=== PATIENT | male | born 1945 | race Caucasian/White ===

== ENCOUNTER 2016-07-28 10:50 | Inpatient (IN) | payer MEDICARE, OTHER ==
[2016-07-28 11:36] LABS: HEMATOCRIT 24.7 % (37.9-51.0); HEMOGLOBIN 8.2 g/dL (13.5-17.0); HGB HCT DIFFERENCE -0.1; MEAN CORPUSCULAR HGB CONC 33.1 g/dL (32.0-36.0); MEAN CORPUSCULAR VOLUME 103 fl (80-97); RED BLOOD COUNT 2.41 10^6/uL (4.35-5.55); RED CELL DISTRIBUTION WIDTH 24.4 % (11.5-14.0); WHITE BLOOD COUNT 6.8 10^3/uL (4.0-10.5)
[2016-07-28 11:57] LABS: ALANINE AMINOTRANSFERASE 50 U/L (21-72); ALBUMIN 3.6 g/dL (3.5-5.0); ALKALINE PHOSPHATASE 112 U/L (38-126); ASPARTATE AMINO TRANSFERASE 42 U/L (17-59); BLOOD UREA NITROGEN 29 mg/dL (7-20); CALCIUM 8.8 mg/dL (8.4-10.2); CHLORIDE 81 mmol/L (98-107); CREATININE RESULT 0.87 mg/dL (0.52-1.25); GLUCOSE 93 mg/dL (75-110); POTASSIUM 3.3 mmol/L (3.6-5.0); SODIUM 131.1 mmol/L (137-145); TOTAL PROTEIN 6.9 g/dL (6.3-8.2)
[2016-07-28 11:58] LABS: ALCOHOL < 10 mg/dL (NONE DETECTED)
[2016-07-28 12:07] LABS: BASOPHILS % (MANUAL) 0 % (0-2); EOSINOPHILS % (MANUAL) 14 % (0-6); LYMPHOCYTES % (MANUAL) 13 % (13-45); TOTAL CELLS COUNTED 100
[2016-07-28 12:08] LABS: ANISOCYTOSIS 3+; OVALOCYTES 1+; POIKILOCYTOSIS 1+; POLYCHROMASIA SLIGHT
[2016-07-28] MEDS ORDERED: NORMAL SALINE 1000 ML 1,000 ML IV ONE (12:15)
[2016-07-28 12:18] LABS: ANION GAP 7 (5-19)
[2016-07-28 12:19] LABS: APPEARANCE,URINE CLEAR; BILIRUBIN,URINE NEGATIVE (NEGATIVE); GLUCOSE, URINE NEGATIVE (NEGATIVE); KETONES,URINE NEGATIVE (NEGATIVE); LEUKOCYTE ESTERASE,URINE TRACE (NEGATIVE); NITRITE,URINE NEGATIVE (NEGATIVE); PROTEIN,URINE NEGATIVE (NEGATIVE); URINE SPECIFIC GRAVITY 1.012
[2016-07-28 12:23] LABS: CARBON DIOXIDE 43 mmol/L (22-30)
[2016-07-28 12:34] LABS: URINE BARBITURATES SCREEN NEGATIVE; URINE METHADONE SCREEN NEGATIVE; URINE PHENCYCLIDINE SCREEN NEGATIVE
--- NOTE | 2016-07-28 13:08 | ER Document Report ---
ED General - General Chief Complaint: Seizure Stated Complaint: POSSIBLE SEIZURE Mode of Arrival: Ambulatory Information source: Patient Notes: 70-year-old male extensive medical history presents after a seizure-like episode when laying flat. Patient was given an x-ray performed of his back as her primary care office when he laid flat and had a syncopal episode. Patient had generalized movement during this episode, and appeared confused afterwards Patient has no previous history seizure disorders patient has had multiple syncopal episodes in the past TRAVEL OUTSIDE OF THE [place] IN LAST 30 DAYS: No - HPI Onset: Just prior to arrival Onset/Duration: Sudden Quality of pain: No pain Severity: Mild Pain Level: Denies Associated symptoms: Other Exacerbated by: Denies Relieved by: Denies Similar symptoms previously: No Recently seen / treated by doctor: Yes - Related Data Allergies/Adverse Reactions: levofloxacin [From Levaquin] Allergy (Verified 12/26/15 19:27) Past Medical History - Social History Smoking Status: Former Smoker Cigarette use (# per day): No Chew tobacco use (# tins/day): No Smoking Education Provided: No Family History: Reviewed & Not Pertinent - Past Medical History Cardiac Medical History: Reports: Hx Atrial Fibrillation, Hx Congestive Heart Failure, Hx Coronary Artery Disease, Hx Hypertension Denies: Hx Heart Attack Pulmonary Medical History: Reports: Hx COPD Denies: Hx Asthma, Hx Bronchitis, Hx Pneumonia Neurological Medical History: Denies: Hx Cerebrovascular Accident, Hx Seizures GI Medical History: Reports: Hx Gastroesophageal Reflux Disease Musculoskeltal Medical History: Denies Hx Arthritis Psychiatric Medical History: Denies: Hx Depression Past Surgical History: Reports: Hx Appendectomy, Hx Cardiac Surgery - pacemaker , Hx Orthopedic Surgery - Elbow surgery, arthroscopy to both knees and shoulders - Immunizations Hx Diphtheria, Pertussis, Tetanus Vaccination: Yes Hx Pneumococcal Vaccination: 07/25/12 Review of Systems - Review of Systems Notes: REVIEW OF SYSTEMS: CONSTITUTIONAL : Denies fever, chills, or sweats. Denies recent illness. EENT: Denies eye, ear, throat, or mouth pain or symptoms. Denies nasal or sinus congestion or discharge. Denies throat, tongue, or mouth swelling or difficulty swallowing. CARDIOVASCULAR: Denies chest pain. Denies palpitations or racing or irregular heart beat. Denies ankle edema. RESPIRATORY: Denies cough, cold, or chest congestion. Denies shortness of breath, difficulty breathing, or wheezing. GASTROINTESTINAL: Denies abdominal pain or distention. Denies nausea, vomiting , or diarrhea. Denies blood in vomitus, stools, or per rectum. Denies black, tarry stools. Denies constipation. GENITOURINARY: Denies difficulty urinating, painful urination, burning, frequency, blood in urine, or discharge. MUSCULOSKELETAL: Denies back or neck pain or stiffness. Denies joint pain or swelling. SKIN: Denies rash, lesions or sores. HEMATOLOGIC : Denies easy bruising or bleeding. LYMPHATIC: Denies swollen, enlarged glands. NEUROLOGICAL: admits to syncope PSYCHIATRIC: Denies anxiety or stress. Denies depression, suicidal ideation, or homicidal ideation. ALL OTHER SYSTEMS REVIEWED AND NEGATIVE. Dictation was performed using [email or web address] voice recognition software PHYSICAL EXAMINATION: GENERAL: Well-appearing, well-nourished and in no acute distress. HEAD: Atraumatic, normocephalic. EYES: Pupils equal round and reactive to light, extraocular movements intact, sclera anicteric, conjunctiva are normal. ENT: Nares patent, oropharynx clear without exudates. Moist mucous membranes. NECK: Normal range of motion, supple without lymphadenopathy LUNGS: coarse wheezing all throughout HEART: Regular rate and rhythm without murmurs ABDOMEN: Soft, nontender, nondistended abdomen. No guarding, no rebound. No masses appreciated. Musculoskeletal: Normal range of motion, no pitting or edema. No cyanosis. NEUROLOGICAL: Cranial nerves grossly intact. Normal speech, normal gait. Normal sensory, motor exams PSYCH: Normal mood, normal affect. SKIN: Warm, Dry, normal turgor, no rashes or lesions noted. Physical Exam - Vital signs Vitals: Temp 98.6 F 07/28/16 11:15 Course - Re-evaluation Re-evalutation: 07/28/16 13:07 Patient was sent for x-ray and when he went to lay flat again had such episode concerning for a seizure however I do not believe patient would have a seizure just by laying flat concerning for hypoxic events 07/28/16 14:31 - Vital Signs Vital signs: Temp Pulse Resp BP Pulse Ox 98.6 F 80 24 H 130/78 H 92 07/28/16 11:15 07/28/16 12:38 07/28/16 12:38 07/28/16 12:38 07/28/16 12:38 - Laboratory Result Diagrams: 07/28/16 11:20 07/28/16 11:20 Laboratory results interpreted by me: 07/28/16 07/28/16 07/28/16 11:20 11:20 12:00 RBC 2.41 L Hgb 8.2 L Hct 24.7 L MCV 103 H MCH 34.0 H RDW 24.4 H Eosinophils % (Manual) 14 H Absolute Eos (Manual) 1.0 H Sodium 131.1 L Potassium 3.3 L Chloride 81 L Carbon Dioxide 43 H* BUN 29 H Total Bilirubin 2.0 H Urine Urobilinogen 2.0 H Ur Leukocyte Esterase TRACE H - Diagnostic Test Radiology reviewed: Image reviewed, Reports reviewed - EKG Interpretation by Me EKG shows normal: Sinus rhythm, [place], Intervals, QRS Complexes Discharge - Discharge Clinical Impression: Syncope and collapse, COPD exacerbation CAD (coronary artery disease) Qualifiers: Coronary Disease-Associated Artery/Lesion type: unspecified vessel or lesion type [place] vs. transplanted heart: [place] heart Associated angina: without angina Qualified Code(s): I25.10 - Atherosclerotic heart disease of [place] coronary artery without angina pectoris CHF exacerbation Qualifiers: Congestive heart failure type: systolic Qualified Code(s): I50.23 - Acute on chronic systolic (congestive) heart failure Condition: Stable Disposition: ADMITTED OBSERVATION Admitting Provider: Hospitalist Unit Admitted: [facility]
--- NOTE | 2016-07-28 15:56 | EKG REPORT ---
SEVERITY:- ABNORMAL ECG - ATRIAL-PACED COMPLEXES PAIRED VENTRICULAR PREMATURE COMPLEXES RIGHT BUNDLE BRANCH BLOCK BORDERLINE ST DEPRESSION, LATERAL LEADS : Confirmed by: Elysia Jj 28-Jul-2016 15:56:02
[2016-07-28] MEDS ORDERED: ALBUTEROL SULFATE HFA (90 MCG/PUFF) 8 GM MDI (1 MDI/ER DISP) IH PRN (16:06)
[2016-07-28] MEDS ORDERED: HYDROCODONE/ACETAMINOPHEN 5-325 MG TABLET PO PRN ×2 (16:06→18:30)
--- NOTE | 2016-07-28 16:13 | PDOC H&P ---
History of Present Illness Admission Date/PCP: 07/28/16 14:55 ELZA HARMON MD Patient complains of: syncope History of Present Illness: KAROL DE LA ROSA is a 70 year old male extensive medical history presents after a seizure-like episode when laying flat. Patient was given an x-ray performed of his back as her primary care office when he laid flat and had a syncopal episode. Patient had generalized movement during this episode, and appeared confused afterwards Patient has no previous history seizure disorders patient has had multiple syncopal episodes in the past TRAVEL OUTSIDE OF THE [place] IN LAST 30 DAYS: No Past Medical History Cardiac Medical History: Reports: Atrial Fibrillation, Congestive Heart Failure , Coronary Artery Disease, Hypertension Denies: Myocardial Infarction Pulmonary Medical History: Reports: Chronic Obstructive Pulmonary Disease (COPD) Denies: Asthma, Bronchitis, Pneumonia Neurological Medical History: Denies: Seizures Malignancy Medical History: Reports: Other - myelodysplastic syndrome GI Medical History: Reports: Gastroesophageal Reflux Disease Musculoskeltal Medical History: Denies: Arthritis Psychiatric Medical History: Denies: Depression Hematology: Reports: Anemia Past Surgical History Past Surgical History: Reports: Appendectomy, Orthopedic Surgery - Elbow surgery , arthroscopy to both knees and shoulders, Other - robotic cryogenic clipping right atrial appendage Social History Smoking Status: Former Smoker Frequency of Alcohol Use: None Hx Recreational Drug Use: No Drugs: None Hx Prescription Drug Abuse: No Family History Family History: Reviewed & Not Pertinent Parental Family History Reviewed: Yes - heart disease Children Family History Reviewed: Unknown Sibling(s) Family History Reviewed.: Unknown Medication/Allergy Home Medications: Albuterol Sulfate [Albuterol Sulfate 2.5mg/3 mL] 2.5 mg IH QIDP PRN 07/28/16 Albuterol Sulfate [Proair HFA] 2 puff IH Q2HP PRN 07/28/16 Atorvastatin Calcium [Lipitor 80 mg Tablet] 80 mg PO DAILY 07/28/16 Citalopram Hydrobromide [Celexa] 20 mg PO DAILY 07/28/16 Clopidogrel Bisulfate [Plavix 75 mg Tablet] 75 mg PO DAILY 07/28/16 Fluticasone Propionate [Flonase Nasal [place] 50 Mcg/[place] 16 gm] 2 puff IN DAILY 07/28/16 Fluticasone/Salmeterol [Advair 500-50 Diskus 28 Dose] 1 puff IH Q12 07/28/16 Hydrocodone/Acetaminophen [[place] 5-325 Tablet] 5 - 325 mg PO Q6HP PRN 07/28/16 Metolazone [Zaroxolyn 2.5 mg Tablet] 2.5 mg PO DAILY 07/28/16 Metoprolol Succinate [Toprol Xl 25 mg Tab.sr] 25 mg PO DAILY 07/28/16 Nystatin 500,000 units PO QID 07/28/16 Potassium Chloride 40 meq PO BIDBS 07/28/16 Pyridoxine HCl [Vitamin B-6 Tablet 50 mg] 50 mg PO BID 07/28/16 Sildenafil Citrate [Viagra] 100 mg PO ASDIR PRN 07/28/16 Thalidomide [Thalomid] 50 mg PO DAILY 07/28/16 Tiotropium [place] [Spiriva [place] 18 mcg/dose (30 Dose)] 1 cap IH DAILY 11/08 Torsemide 100 mg PO DAILY 07/28/16 Allergies/Adverse Reactions: levofloxacin [From Levaquin] Allergy (Verified 12/26/15 19:27) Review of Systems Constitutional: ABSENT: chills, fever(s), headache(s), weight gain, weight loss Eyes: ABSENT: visual disturbances Ears: ABSENT: hearing changes Cardiovascular: ABSENT: chest pain, dyspnea on exertion, edema, orthropnea, palpitations Respiratory: ABSENT: cough, hemoptysis Gastrointestinal: ABSENT: abdominal pain, constipation, diarrhea, hematemesis, hematochezia, nausea, vomiting Genitourinary: ABSENT: dysuria, hematuria Musculoskeletal: PRESENT: back pain. ABSENT: joint swelling Integumentary: ABSENT: rash, wounds Neurological: ABSENT: abnormal gait, abnormal speech, confusion, dizziness, focal weakness, syncope Psychiatric: ABSENT: anxiety, depression, homidical ideation, suicidal ideation Endocrine: ABSENT: cold intolerance, heat intolerance, polydipsia, polyuria Hematologic/Lymphatic: ABSENT: easy bleeding, easy bruising Physical Exam Vital Signs: Temp Pulse Resp BP Pulse Ox 98.6 F 80 24 H 130/78 H 92 07/28/16 11:15 07/28/16 12:38 07/28/16 12:38 07/28/16 12:38 07/28/16 12:38 General appearance: PRESENT: no acute distress, well-developed, well-nourished Head exam: PRESENT: atraumatic, normocephalic Eye exam: PRESENT: conjunctiva pink, EOMI, PERRLA. ABSENT: scleral icterus Ear exam: PRESENT: normal external ear exam Mouth exam: PRESENT: moist, tongue midline Neck exam: ABSENT: carotid bruit, JVD, lymphadenopathy, thyromegaly Respiratory exam: PRESENT: clear to auscultation neri. ABSENT: rales, rhonchi, wheezes Cardiovascular exam: PRESENT: RRR. ABSENT: diastolic murmur, rubs, systolic murmur Pulses: PRESENT: normal dorsalis pedis pul Vascular exam: PRESENT: normal capillary refill GI/Abdominal exam: PRESENT: normal bowel sounds, soft. ABSENT: distended, guarding, mass, organolmegaly, rebound, tenderness Rectal exam: PRESENT: deferred Extremities exam: PRESENT: full ROM. ABSENT: calf tenderness, clubbing, pedal edema Musculoskeletal exam: PRESENT: other - severe tenderness lowback on palpation Neurological exam: PRESENT: alert, awake, oriented to person, oriented to place , oriented to time, oriented to situation, CN II-XII grossly intact. ABSENT: motor sensory deficit Psychiatric exam: PRESENT: appropriate affect, normal mood. ABSENT: homicidal ideation, suicidal ideation Skin exam: PRESENT: dry, intact, warm. ABSENT: cyanosis, rash Results Impressions: Lumbar Spine X-Ray 07/28/16 12:15 IMPRESSION: Age indeterminate compression deformities at L1 and L4 with about 25% loss of height. Osteopenia Thoracic Spine X-Ray 07/28/16 12:15 IMPRESSION: Osteopenia. No acute changes Assessment & Plan - Diagnosis (1) Syncope and collapse Is this a current diagnosis for this admission?: YesPlan: previous admission with same diagnosis likely vasovagal orthostatic blood pressures hydrate gently monitor reevaluate in am (2) Compression fracture of lumbar vertebra Qualifiers: Encounter type: subsequent encounter Is this a current diagnosis for this admission?: YesPlan: patient is a candiadate for vertebroplasty if clinically stable (3) Chronic atrial fibrillation Is this a current diagnosis for this admission?: YesPlan: rate controlled S/P pacemaker (5) Anemia Qualifiers: Anemia type: unspecified type Qualified Code(s): D64.9 - Anemia, unspecified Is this a current diagnosis for this admission?: YesPlan: hx myelodysplasia iron studies in am acute on chronic anemia of chronic disease if H/H lower transfuse - Time Time Spent with patient: admit to IMCU for observation Time Spent: Greater than 70 Minutes - Inpatient Certification Based on my medical assessment, after consideration of the patient's comorbidities, presenting symptoms, or acuity I expect that the services needed warrant INPATIENT care.: No I certify that my determination is in accordance with my understanding of Medicare's requirements for reasonable and necessary INPATIENT services [42 CFR 412.3e].: Yes
[2016-07-28] MEDS ORDERED: NORMAL SALINE 1000 ML 1,000 ML IV PRN (16:25)
[2016-07-28 16:32] LABS: VENOUS BLOOD BASE EXCESS 14.1 mmol/L; VENOUS BLOOD HCO3 38.2 mmol/L (20-32); VENOUS BLOOD PCO2 46.4 mmHg (35-63); VENOUS BLOOD PH 7.53 (7.30-7.42)
[2016-07-28] MEDS ORDERED: MORPHINE SULFATE 10 MG/ML INJ IV PRN (16:33)
[2016-07-28] MEDS ORDERED: NORMAL SALINE 500 ML IV ONE (17:30)
[2016-07-28] MEDS ORDERED: POTASSIUM CHLORIDE 10 MEQ TABLET.SA PO ONE (17:30)
[2016-07-28] MEDS ORDERED: ALBUTEROL SULFATE HFA (90 MCG/PUFF) 200 PUFF/8.5 GM MDI IH PRN (18:25)
[2016-07-28] MEDS: PYRIDOXINE HCL 50 MG TABLET PO SCH (20:02)
[2016-07-28] MEDS: DOCUSATE SODIUM 100 MG CAPSULE PO SCH (20:03)
[2016-07-28] MEDS: FLUTICASONE/SALMETEROL DISKUS 500-50 MCG/DOSE IH SCH (22:03)
[2016-07-28] MEDS ORDERED: IPRATROPIUM/ALBUTEROL 0.5-2.5 MG/3 ML AMPUL NEB ONE ×2 (22:26→22:30)
[2016-07-29] MEDS: IPRATROPIUM/ALBUTEROL 0.5-2.5 MG/3 ML AMPUL NEB SCH ×4 (02:30→21:10)
[2016-07-29 07:05] LABS: HGB HCT DIFFERENCE -0.6; MEAN CORPUSCULAR HEMOGLOBIN 33.2 pg (27.0-33.4); MEAN CORPUSCULAR HGB CONC 32.3 g/dL (32.0-36.0); MEAN CORPUSCULAR VOLUME 103 fl (80-97); RED BLOOD COUNT 2.34 10^6/uL (4.35-5.55); RED CELL DISTRIBUTION WIDTH 23.8 % (11.5-14.0)
[2016-07-29 07:10] LABS: ALANINE AMINOTRANSFERASE 56 U/L (21-72); ALBUMIN 3.1 g/dL (3.5-5.0); ALKALINE PHOSPHATASE 100 U/L (38-126); ANION GAP 10 (5-19); ASPARTATE AMINO TRANSFERASE 59 U/L (17-59); BILIRUBIN,TOTAL 2.1 mg/dL (0.2-1.3); BLOOD UREA NITROGEN 32 mg/dL (7-20); CALCIUM 8.7 mg/dL (8.4-10.2); CARBON DIOXIDE 38 mmol/L (22-30); CHLORIDE 85 mmol/L (98-107); CREATININE RESULT 0.93 mg/dL (0.52-1.25); GLUCOSE 95 mg/dL (75-110); POTASSIUM 3.7 mmol/L (3.6-5.0); SODIUM 132.6 mmol/L (137-145); TOTAL PROTEIN 6.6 g/dL (6.3-8.2)
[2016-07-29 07:23] LABS: BAND NEUTROPHILS % (MANUAL) 5 % (3-5); BASOPHILS % (MANUAL) 1 % (0-2); EOSINOPHILS % (MANUAL) 9 % (0-6); LYMPHOCYTES % (MANUAL) 10 % (13-45); TOTAL CELLS COUNTED 100
[2016-07-29 07:25] LABS: ANISOCYTOSIS 3+; HYPOCHROMASIA SLIGHT; OVALOCYTES 1+; POIKILOCYTOSIS 1+; POLYCHROMASIA SLIGHT; TOXIC GRANULATION SLIGHT
[2016-07-29 07:26] LABS: HEMOGLOBIN 7.8 g/dL (13.5-17.0)
--- NOTE | 2016-07-29 07:58 | EKG REPORT ---
SEVERITY:- ABNORMAL ECG - ATRIAL-PACED RHYTHM IVCD, CONSIDER ATYPICAL RBBB : Confirmed by: Elysia Jj 29-Jul-2016 07:58:28
[2016-07-29] MEDS ORDERED: FLUTICASONE NASAL SPRAY 50 MCG/SPRY 120 SPRAY/16 GM NASL SCH (10:00)
[2016-07-29] MEDS: PYRIDOXINE HCL 50 MG TABLET PO SCH ×2 (10:10→17:16)
[2016-07-29] MEDS: ATORVASTATIN CALCIUM 80 MG TABLET PO SCH (10:10)
[2016-07-29] MEDS: CITALOPRAM HYDROBROMIDE 20 MG TABLET PO SCH (10:11)
[2016-07-29] MEDS: CLOPIDOGREL BISULFATE 75 MG TABLET PO SCH (10:11)
[2016-07-29] MEDS: FLUTICASONE/SALMETEROL DISKUS 500-50 MCG/DOSE IH SCH ×2 (10:14→23:03)
[2016-07-29] MEDS: TIOTROPIUM BROMIDE DPI 5 CAP/KIT (18 MCG/CAP) IH SCH (10:14)
[2016-07-29] MEDS: FLUTICASONE NASAL SPRAY 50 MCG/SPRY 120 SPRAY/16 GM NASL SCH ×2 (10:16→23:03)
[2016-07-29] MEDS: DOCUSATE SODIUM 100 MG CAPSULE PO SCH ×2 (10:17→17:18)
[2016-07-29 13:25] LABS: CREATINE KINASE MB 0.72 ng/mL (<4.55); TROPONIN I 0.054 ng/mL
--- NOTE | 2016-07-29 16:52 | PDOC PROGRESS REPORT ---
Subjective Progress Note for:: 07/29/16 Subjective:: feels better still has severe pain in back no chest pain no SOB monitor : atrial paced rythm Physical Exam Vital Signs: Temp Pulse Resp BP Pulse Ox 97.8 F 78 18 92/58 L 100 07/29/16 11:10 07/29/16 14:15 07/29/16 14:15 07/29/16 13:30 07/29/16 11:10 Intake & Output 07/28/16 07/29/16 07/30/16 00:59 00:59 00:59 Intake Total 1000 1200 Output Total 550 350 Balance 450 850 Weight 86.1 kg 95.7 kg General appearance: PRESENT: no acute distress Head exam: PRESENT: atraumatic, normocephalic Eye exam: PRESENT: conjunctiva pale, PERRLA Neck exam: ABSENT: carotid bruit, JVD, lymphadenopathy, thyromegaly Respiratory exam: PRESENT: clear to auscultation neri. ABSENT: rales, rhonchi, wheezes Cardiovascular exam: PRESENT: RRR. ABSENT: diastolic murmur, rubs, systolic murmur GI/Abdominal exam: PRESENT: normal bowel sounds, soft. ABSENT: distended, guarding, mass, organolmegaly, rebound, tenderness Extremities exam: PRESENT: full ROM. ABSENT: calf tenderness, clubbing, pedal edema Neurological exam: PRESENT: alert, awake, oriented to person, oriented to place , oriented to time, oriented to situation, CN II-XII grossly intact. ABSENT: motor sensory deficit Results Laboratory Results: 07/29/16 06:27 07/29/16 06:27 07/29/16 07/29/16 07/29/16 06:27 06:27 06:27 WBC 6.0 RBC 2.34 L Hgb 7.8 L Hct 24.0 L MCV 103 H MCH 33.2 MCHC 32.3 RDW 23.8 H Plt Count 389 Seg Neutrophils % Not Reportable Lymphocytes % Not Reportable Monocytes % Not Reportable Eosinophils % Not Reportable Basophils % Not Reportable Absolute Neutrophils Not Reportable Absolute Lymphocytes Not Reportable Absolute Monocytes Not Reportable Absolute Eosinophils Not Reportable Absolute Basophils Not Reportable Retic Count (auto) 2.68 Absolute Retic 0.063 Sodium 132.6 L Potassium 3.7 Chloride 85 L Carbon Dioxide 38 H Anion Gap 10 BUN 32 H Creatinine 0.93 Est GFR ( Amer) > 60 Est GFR (Non-Af Amer) > 60 Glucose 95 Calcium 8.7 Iron 66 TIBC 274 % Saturation 24 Ferritin 269.00 Total Bilirubin 2.1 H AST 59 ALT 56 Alkaline Phosphatase 100 Total Protein 6.6 Albumin 3.1 L Vitamin B12 907.0 Folate 18.10 TSH 3.21 07/28/16 07/29/16 07/29/16 22:10 12:27 12:27 Creatine Kinase < 20 L CK-MB (CK-2) 0.72 Troponin I 0.070 0.054 Impressions: Lumbar Spine X-Ray 07/28/16 12:15 IMPRESSION: Age indeterminate compression deformities at L1 and L4 with about 25% loss of height. Osteopenia Thoracic Spine X-Ray 07/28/16 12:15 IMPRESSION: Osteopenia. No acute changes Assessment & Plan - Diagnosis (1) Syncope and collapse Is this a current diagnosis for this admission?: YesPlan: likely secondary to orthostatic hypotension in February [address] head will order echo and carotid US troponins in intermediate range (2) Compression fracture of lumbar vertebra Qualifiers: Encounter type: subsequent encounter Is this a current diagnosis for this admission?: YesPlan: patient may be a candidate for vertebroplasty called Dr Henson for consult (3) Chronic atrial fibrillation Is this a current diagnosis for this admission?: Yes (4) Hx of congestive heart failure Is this a current diagnosis for this admission?: YesPlan: unknow EF compensated at this time (5) Anemia Qualifiers: Anemia type: unspecified type Qualified Code(s): D64.9 - Anemia, unspecified Is this a current diagnosis for this admission?: YesPlan: acute on chronic anemia chronic disease Patient has been diagnosed of myelodysplastic syndrome in past recommended that patient be transfused 2 pRBC's Patient's refuses, suggests I speak with Dr Hernesto Soliz called office did not receive call back - Time Time Spent with patient: Will complete work up Patient's would like patient to be transfered to Alexandr Soliz for blood transfusion and reevaluation I do not feel that at this time transfer to higher level of care is warranted will repeat cbc in am and discharge patient home to follow up with primary care Patient may have transfusion as outpatient at later date if clinically stable Time Spent with patient: 35 or more minutes
[2016-07-29] MEDS ORDERED: OXYCODONE-ACETAMINOPHEN 5-325 MG TABLET PO PRN (22:17)
[2016-07-29] MEDS ORDERED: MORPHINE SULFATE 10 MG/ML INJ IV PRN (22:19)
[2016-07-29] MEDS: OXYCODONE-ACETAMINOPHEN 5-325 MG TABLET PO PRN (23:04)
[2016-07-30] MEDS: IPRATROPIUM/ALBUTEROL 0.5-2.5 MG/3 ML AMPUL NEB SCH ×4 (01:54→20:13)
[2016-07-30 06:01] LABS: CREATINE KINASE MB 0.8 ng/mL (<4.55); TROPONIN I 0.062 ng/mL
[2016-07-30 08:36] LABS: HEMATOCRIT 25.1 % (37.9-51.0); HEMOGLOBIN 8.4 g/dL (13.5-17.0); HGB HCT DIFFERENCE 0.1; MEAN CORPUSCULAR HEMOGLOBIN 33.9 pg (27.0-33.4); MEAN CORPUSCULAR HGB CONC 33.5 g/dL (32.0-36.0); MEAN CORPUSCULAR VOLUME 101 fl (80-97); RED BLOOD COUNT 2.47 10^6/uL (4.35-5.55); RED CELL DISTRIBUTION WIDTH 24.7 % (11.5-14.0); WHITE BLOOD COUNT 6.6 10^3/uL (4.0-10.5)
[2016-07-30 08:54] LABS: BAND NEUTROPHILS % (MANUAL) 2 % (3-5); BASOPHILS % (MANUAL) 1 % (0-2); EOSINOPHILS % (MANUAL) 13 % (0-6); LYMPHOCYTES % (MANUAL) 6 % (13-45); TOTAL CELLS COUNTED 100
[2016-07-30 08:55] LABS: BLOOD UREA NITROGEN 25 mg/dL (7-20); CALCIUM 9.1 mg/dL (8.4-10.2); CHLORIDE 85 mmol/L (98-107); CREATININE RESULT 0.72 mg/dL (0.52-1.25); GLUCOSE 106 mg/dL (75-110); POTASSIUM 3.6 mmol/L (3.6-5.0); SODIUM 132.9 mmol/L (137-145)
[2016-07-30 08:56] LABS: ANISOCYTOSIS 3+; OVALOCYTES SLIGHT; POIKILOCYTOSIS SLIGHT; TOXIC GRANULATION 1+
[2016-07-30 08:57] LABS: POLYCHROMASIA SLIGHT
[2016-07-30 09:02] LABS: ANION GAP 8 (5-19)
[2016-07-30 09:21] LABS: CARBON DIOXIDE 40 mmol/L (22-30)
[2016-07-30] MEDS: CLOPIDOGREL BISULFATE 75 MG TABLET PO SCH (10:03)
[2016-07-30] MEDS: CITALOPRAM HYDROBROMIDE 20 MG TABLET PO SCH (10:03)
[2016-07-30] MEDS: PYRIDOXINE HCL 50 MG TABLET PO SCH ×2 (10:03→17:22)
[2016-07-30] MEDS: FLUTICASONE NASAL SPRAY 50 MCG/SPRY 120 SPRAY/16 GM NASL SCH ×2 (10:03→21:15)
[2016-07-30] MEDS: ATORVASTATIN CALCIUM 80 MG TABLET PO SCH (10:03)
[2016-07-30] MEDS: TIOTROPIUM BROMIDE DPI 5 CAP/KIT (18 MCG/CAP) IH SCH (10:04)
[2016-07-30] MEDS: FLUTICASONE/SALMETEROL DISKUS 500-50 MCG/DOSE IH SCH ×2 (10:04→21:15)
[2016-07-30] MEDS: DOCUSATE SODIUM 100 MG CAPSULE PO SCH ×2 (10:04→17:22)
--- NOTE | 2016-07-30 11:15 | PDOC TRANSFER SUMMARY ---
General Admission Date/PCP: 07/28/16 16:25 ELZA HARMON MD CARDI[address] KAROL SONI Admission Date: 07/28/16 Transfer Date: 07/30/16 Accepting Facility: [facility] Resuscitation Status: Full Code - Transfer Diagnosis (1) Syncope and collapse Current Visit: Yes (2) Compression fracture of lumbar vertebra Current Visit: Yes (3) Chronic atrial fibrillation Current Visit: Yes (4) Anemia Current Visit: No (5) Acute on chronic diastolic CHF (congestive heart failure) Current Visit: Yes (6) Hypotension Current Visit: Yes - Transfer Medications Home Medications: Albuterol Sulfate [Albuterol Sulfate 2.5mg/3 mL] 2.5 mg IH QIDP PRN 07/28/16 Albuterol Sulfate [Proair HFA] 2 puff IH Q2HP PRN 07/28/16 Atorvastatin Calcium [Lipitor 80 mg Tablet] 80 mg PO DAILY 07/28/16 Citalopram Hydrobromide [Celexa] 20 mg PO DAILY 07/28/16 Clopidogrel Bisulfate [Plavix 75 mg Tablet] 75 mg PO DAILY 07/28/16 Fluticasone Propionate [Flonase Nasal Minco 50 Mcg/Minco 16 gm] 2 puff IN DAILY 07/28/16 Fluticasone/Salmeterol [Advair 500-50 Diskus 28 Dose] 1 puff IH Q12 07/28/16 Hydrocodone/Acetaminophen [[place] 5-325 Tablet] 5 - 325 mg PO Q6HP PRN 07/28/16 Metolazone [Zaroxolyn 2.5 mg Tablet] 2.5 mg PO DAILY 07/28/16 Metoprolol Succinate [Toprol Xl 25 mg Tab.sr] 25 mg PO DAILY 07/28/16 Nystatin 500,000 units PO QID 07/28/16 Potassium Chloride 40 meq PO BIDBS 07/28/16 Pyridoxine HCl [Vitamin B-6 Tablet 50 mg] 50 mg PO BID 07/28/16 Sildenafil Citrate [Viagra] 100 mg PO ASDIR PRN 07/28/16 Thalidomide [Thalomid] 50 mg PO DAILY 07/28/16 Tiotropium [place] [Spiriva Handihaler 18 mcg/dose (30 Dose)] 1 cap IH DAILY 11/08 Torsemide 100 mg PO DAILY 07/28/16 Transfer Medications: Current Medications Albuterol (Proair Hfa Inhalation Aerosol 8.5 Gm Mdi) 2 puff IH Q2HP PRN PRN Reason: COUGH Stop: 08/27/16 18:24 Albuterol/Ipratropium (Duoneb 3 Ml Ampul) 3 ml NEB RTQ6 [facility] Stop: 08/27/16 22:14 Last Admin: 07/30/16 08:42 Dose: 3 ml Atorvastatin Calcium (Lipitor 80 Mg Tablet) 80 mg PO DAILY [facility] Stop: 08/28/16 09:59 Last Admin: 07/30/16 10:03 Dose: 80 mg Citalopram Hydrobromide (Celexa 20 Mg Tablet) 20 mg PO DAILY [facility] Stop: 08/28/16 09:59 Last Admin: 07/30/16 10:03 Dose: 20 mg Clopidogrel Bisulfate (Plavix 75 Mg Tablet) 75 mg PO DAILY [facility] Stop: 08/28/16 09:59 Last Admin: 07/30/16 10:03 Dose: 75 mg Docusate Sodium (Colace 100 Mg Capsule) 100 mg PO BID [facility] Stop: 08/27/16 17:59 Last Admin: 07/30/16 10:04 Dose: Not Given Fluticasone Propionate (Flonase Nasal Minco 50 Mcg/Minco 16 Gm) 2 spray NASL Q12 [facility] Stop: 08/28/16 09:59 Last Admin: 07/30/16 10:03 Dose: 2 spray Morphine Sulfate (Morphine 10 Mg/Ml Inj) 2 mg IV Q4HP PRN PRN Reason: FOR PAIN SCALE 4-5 Stop: 08/05/16 22:18 Oxycodone/Acetaminophen (Percocet 5-325 Mg Tablet) 1 tab PO TIDP PRN PRN Reason: LESSER PAIN Stop: 08/05/16 22:15 Last Admin: 07/29/16 23:04 Dose: 1 tab Oxycodone/Acetaminophen (Percocet 5-325 Mg Tablet) 2 tab PO TIDP PRN PRN Reason: GREATER PAIN Stop: 08/05/16 22:16 Pyridoxine HCl (Vitamin B-6 Tablet 50 Mg) 50 mg PO BID [facility] Stop: 08/27/16 17:59 Last Admin: 07/30/16 10:03 Dose: 50 mg Fluticasone/Salmeterol (Advair 500-50 Diskus 14 Dose/Diskus) 1 inh IH Q12 [facility] Stop: 08/27/16 21:59 Last Admin: 07/30/16 10:04 Dose: 1 inh Tiotropium [place] (Spiriva Handihaler 5 Cap/Kit (18 Mcg/Cap)) 1 cap IH DAILY [facility] Stop: 08/28/16 09:59 Last Admin: 07/30/16 10:04 Dose: 1 cap - Allergies Allergies/Adverse Reactions: levofloxacin [From Levaquin] Allergy (Verified 12/26/15 19:27) - Diet/Activity Discharge Diet: Cardiac Hospital Course Hospital Course: 1 acute on chronic CHF left ventricular ejection fraction is unknown A repeat echocardiogram is being performed today ; records from [facility] have not been available yet Patient came in with mild shortness of breath On the chest x-ray and he did have some signs of fluid overload with small pleural effusions As his blood pressure was low ; torsemide was held Echocardiogram was performed today Patient needs a cardiology evaluation; and a dopamine drip may be indicated if the blood pressure remains low We will order a small doses of Lasix IV as tolerated 2 troponins have been in the intermediate range There is no a history of chest pain There is no evidence that the patient has an acute coronary syndrome 3 patient has chronic COPD he is O2 dependent Shortness of breath likely a to be also secondary to chronic COPD 4- compression fracture of the LS spine L1 and L4 Patient is in severe pain about 6/10 Pain management consult was obtained And patient is being evaluated for vertebroplasty But we think that the patient is at this time not a surgical candidate; and that if vertebroplasty is considered should be performed [facility] 5 acute on chronic anemia Secondary 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 Eric And every step of the care provided has been difficult It is for the patient's best interest to be transferred to [facility] when he wishes to be 6 chronic atrial fibrillation Patient is currently in paced rhythm 7 syncope on admission The etiology of the syncope is likely to be secondary to hypotension and or vasovagal episode Patient was on the x-ray table at time and the pain in his back was extremely Patient has refused carotid ultrasound We did not A schedule a CAT scan of his head as we were concerned about having him lay down flat Patient could not stay be checked for orthostatic hypotension as he cannot stand because of the severe pain in his back Patient was monitored; he did not have significant arrhythmia remains in a paced rhythm Physical Exam Vital Signs: Temp Pulse Resp BP Pulse Ox 97.6 F 79 22 H 91/49 L 93 07/30/16 03:49 07/30/16 03:49 07/30/16 03:49 07/30/16 03:49 07/30/16 03:49 Intake & Output 07/29/16 07/30/16 07/31/16 00:59 00:59 00:59 Intake Total 1000 2720 300 Output Total 550 1600 200 Balance 450 1120 100 Weight 86.1 kg 95.7 kg 95.7 kg General appearance: PRESENT: mild distress, well-developed, well-nourished Head exam: PRESENT: atraumatic, normocephalic Eye exam: PRESENT: conjunctiva pink, EOMI, PERRLA. ABSENT: scleral icterus Ear exam: PRESENT: normal external ear exam Mouth exam: PRESENT: moist, tongue midline Neck exam: ABSENT: carotid bruit, JVD, lymphadenopathy, thyromegaly Respiratory exam: PRESENT: decreased breath sounds. ABSENT: rales, rhonchi, wheezes Cardiovascular exam: PRESENT: RRR. ABSENT: diastolic murmur, rubs, systolic murmur Pulses: PRESENT: normal dorsalis pedis pul Vascular exam: PRESENT: normal capillary refill GI/Abdominal exam: PRESENT: normal bowel sounds, soft. ABSENT: distended, guarding, mass, organolmegaly, rebound, tenderness Rectal exam: PRESENT: deferred Extremities exam: PRESENT: full ROM. ABSENT: calf tenderness, clubbing, pedal edema Neurological exam: PRESENT: alert, awake, oriented to person, oriented to place , oriented to time, oriented to situation, CN II-XII grossly intact. ABSENT: motor sensory deficit Psychiatric exam: PRESENT: appropriate affect, normal mood. ABSENT: homicidal ideation, suicidal ideation Skin exam: PRESENT: dry, intact, warm. ABSENT: cyanosis, rash Results Laboratory Results: 07/30/16 08:21 07/30/16 08:21 07/30/16 07/30/16 08:21 08:21 WBC 6.6 RBC 2.47 L Hgb 8.4 L Hct 25.1 L MCV 101 H MCH 33.9 H MCHC 33.5 RDW 24.7 H Plt Count 408 Seg Neutrophils % Not Reportable Lymphocytes % Not Reportable Monocytes % Not Reportable Eosinophils % Not Reportable Basophils % Not Reportable Absolute Neutrophils Not Reportable Absolute Lymphocytes Not Reportable Absolute Monocytes Not Reportable Absolute Eosinophils Not Reportable Absolute Basophils Not Reportable Sodium 132.9 L Potassium 3.6 Chloride 85 L Carbon Dioxide 40 H* Anion Gap 8 BUN 25 H Creatinine 0.72 Est GFR ( Amer) > 60 Est GFR (Non-Af Amer) > 60 Glucose 106 Calcium 9.1 07/28/16 07/29/16 07/29/16 22:10 12:27 12:27 Creatine Kinase < 20 L CK-MB (CK-2) 0.72 Troponin I 0.070 0.054 NT-Pro-B Natriuret Pep 07/30/16 07/30/16 04:46 04:46 Creatine Kinase < 20 L CK-MB (CK-2) 0.80 Troponin I 0.062 NT-Pro-B Natriuret Pep 2520 H 07/28/16 07/28/16 07/28/16 11:20 11:20 12:00 RBC 2.41 L Hgb 8.2 L Hct 24.7 L MCV 103 H MCH 34.0 H RDW 24.4 H Band Neutrophils % Lymphocytes % (Manual) Monocytes % (Manual) Eosinophils % (Manual) 14 H Abs Lymphs (Manual) Absolute Eos (Manual) 1.0 H VBG pH VBG HCO3 Sodium 131.1 L Potassium 3.3 L Chloride 81 L Carbon Dioxide 43 H* BUN 29 H Total Bilirubin 2.0 H Creatine Kinase NT-Pro-B Natriuret Pep Albumin Vitamin B12 Urine Urobilinogen 2.0 H Ur Leukocyte Esterase TRACE H 07/28/16 07/28/16 07/29/16 16:16 16:16 06:27 RBC 2.34 L Hgb 7.8 L Hct 24.0 L MCV 103 H MCH RDW 23.8 H Band Neutrophils % Lymphocytes % (Manual) 10 L Monocytes % (Manual) Eosinophils % (Manual) 9 H Abs Lymphs (Manual) Absolute Eos (Manual) VBG pH 7.53 H VBG HCO3 38.2 H Sodium Potassium Chloride Carbon Dioxide BUN Total Bilirubin Creatine Kinase NT-Pro-B Natriuret Pep Albumin Vitamin B12 > 1000.0 H Urine Urobilinogen Ur Leukocyte Esterase 07/29/16 07/29/16 07/30/16 06:27 12:27 04:46 RBC Hgb Hct MCV MCH RDW Band Neutrophils % Lymphocytes % (Manual) Monocytes % (Manual) Eosinophils % (Manual) Abs Lymphs (Manual) Absolute Eos (Manual) VBG pH VBG HCO3 Sodium 132.6 L Potassium Chloride 85 L Carbon Dioxide 38 H BUN 32 H Total Bilirubin 2.1 H Creatine Kinase < 20 L < 20 L NT-Pro-B Natriuret Pep Albumin 3.1 L Vitamin B12 Urine Urobilinogen Ur Leukocyte Esterase 07/30/16 07/30/16 07/30/16 04:46 08:21 08:21 RBC 2.47 L Hgb 8.4 L Hct 25.1 L MCV 101 H MCH 33.9 H RDW 24.7 H Band Neutrophils % 2 L Lymphocytes % (Manual) 6 L Monocytes % (Manual) 16 H Eosinophils % (Manual) 13 H Abs Lymphs (Manual) 0.4 L Absolute Eos (Manual) 0.9 H VBG pH VBG HCO3 Sodium 132.9 L Potassium Chloride 85 L Carbon Dioxide 40 H* BUN 25 H Total Bilirubin Creatine Kinase NT-Pro-B Natriuret Pep 2520 H Albumin Vitamin B12 Urine Urobilinogen Ur Leukocyte Esterase EKG Comments: atrial paced complexes Impressions: Lumbar Spine X-Ray 07/28/16 12:15 IMPRESSION: Age indeterminate compression deformities at L1 and L4 with about 25% loss of height. Osteopenia Thoracic Spine X-Ray 07/28/16 12:15 IMPRESSION: Osteopenia. No acute changes Plan Discharge Plan: We will transfer to [facility] soon as a bed is available
[2016-07-30] MEDS ORDERED: FUROSEMIDE INJ/PF 20 MG/2 ML SDV IV ONE (11:45)
[2016-07-30 12:31] LABS: VENOUS BLOOD BASE EXCESS 13.8 mmol/L; VENOUS BLOOD HCO3 39.4 mmol/L (20-32); VENOUS BLOOD PH 7.45 (7.30-7.42)
[2016-07-30] MEDS: OXYCODONE-ACETAMINOPHEN 5-325 MG TABLET PO PRN (17:27)
[2016-07-30] MEDS ORDERED: PREDNISONE 20 MG TABLET PO SCH (18:00)
--- NOTE | 2016-07-30 18:03 | XCELERA REPORT ---
[address] [address] Transthoracic Echocardiogram Report Name: KAROL DE LA ROSA Age: 70 yrs Gender: Male : 1945 Patient Status: Inpatient Patient Location: 3S\S\330\S\A Study Date: 07/29/2016 07:58 PM Height: 68 in Weight: 210 lb BSA: 2.1 m2 Procedure: A two-dimensional transthoracic echocardiogram with color flow and Doppler was performed. Study Quality: Technically suboptimal. Reason For Study: SYNCOPE History: SYNCOPE. Ordering Physician: AMMON CASEY Performed By: Bina Lezama Interpretation Summary The left ventricle is normal in size. There is normal left ventricular wall thickness. Left ventricular systolic function is normal. LV EF is > than 60% The left ventricular wall motion is normal. Suspect RV enlargement. The left atrial size is normal. There is no evidence of mitral valve prolapse. There is no mitral valve stenosis. There is a mild amount of mitral regurgitation There is no aortic valve stenosis There is no LVOT obstruction. No aortic regurgitation is present. There is no tricuspid stenosis. There is a mild amount of tricuspid regurgitation There is servere pulmonary hypertension by echo RVSP is 67 mm of Hg , with RA mean of 1`5. There is no pericardial effusion. MMode/2D Measurements \T\ Calculations RVDd: 4.2 cm LVIDd: 4.6 cm FS: 33.2 % Ao root diam: 3.1 cm IVSd: 1.1 cm LVIDs: 3.1 cm EDV(Teich): 98.7 ml LVPWd: 1.1 cm ESV(Teich): 37.7 ml Ao root area: 7.5 cm2 EF(Teich): 61.8 % LA dimension: 4.0 cm LVOT diam: 1.9 cm LVOT area: 2.7 cm2 Doppler Measurements \T\ Calculations MV E max hank: MV P1/2t max hank: Ao V2 max: LV V1 max P.9 cm/sec 121.4 cm/sec 155.4 cm/sec 5.5 mmHg MV P1/2t: 65.3 msec Ao max PG: LV V1 max: MVA(P1/2t): 3.4 cm2 9.7 mmHg 117.5 cm/sec MV dec slope: JUDY(V,D): 2.1 cm2 544.9 cm/sec2 MV dec time: 0.21 sec PA V2 max: PI end-d hank: TR max hank: 96.3 cm/sec 145.1 cm/sec 361.1 cm/sec PA max PG: TR max P.7 mmHg 52.1 mmHg Left Ventricle The left ventricle is normal in size. There is normal left ventricular wall thickness. Left ventricular systolic function is normal. LV EF is > than 60%. LV diastolic function could not be adequately assessed. The left ventricular wall motion is normal. There is no thrombus. There is no ventricular septal defect visualized. Right Ventricle The right ventricle is not well visualized secondary to technical limitations. Suspect RV enlargement. Atria The right atrium is normal. The left atrial size is normal. The interatrial septum is intact with no evidence for an atrial septal defect. Mitral Valve There is no evidence of mitral valve prolapse. There is no vegetation seen on the mitral valve. There is no mitral valve stenosis. There is a mild amount of mitral regurgitation. Aortic Valve There is no aortic valvular vegetation. There is no aortic valve stenosis. There is no LVOT obstruction. No aortic regurgitation is present. Tricuspid Valve There is no tricuspid stenosis. There is a mild amount of tricuspid regurgitation. There is servere pulmonary hypertension by echo. RVSP is 67 mm of Hg , with RA mean of 1`5. Pulmonic Valve There is no pulmonic valvular stenosis. There is a mild amount of pulmonic regurgitation. Great Vessels The aortic root is not well visualized but is probably normal size. Effusions There is no pericardial effusion. : AMMON CASEY > Maribel Young
[2016-07-30 21:42] VITALS: BP 124/54
--- NOTE | 2016-08-02 10:18 | CONSULTATION REPORT E ---
Consultation Report NAME: KAROL DE LA ROSA : 1945 AGE: 70Y DATE: 08/02/2016 330 A TO: JEREMY CISNEROS FROM: Requesting Physician CHIEF COMPLAINT: Acute chronic back pain. HISTORY OF PRESENT ILLNESS: The patient is a 70-year-old male who we were consulted to see for onset of severe back pain. The patient notably stands with a history of chronic illness to include COPD, CHF, pulmonary hypertension, MDS anemia, currently has a pacemaker being followed by Dr. 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 The patient was noted to have fallen approximately 3-4 times in the past 2 weeks. He initially had 2 major episodes in the past 2 weeks that triggered the increased lower lumbar pain that he is having today. Initial fall took place when he stood up to go to bed from his reclining chair and he lost his balance secondary to blacking out. He states that when he was actually walking down the irene, blacked out, and he woke up around 60-80 seconds later with increased lower lumbar spine pain. He said that he felt like he was kicked in a fight. He was seen shortly after by his chiropractor for an adjustment and at that time had an x-ray was told that he actually had lumbar spine fracture, not sure what level at the time. He states that the chiropractor advised him that it would heal on its own and there was not much that he could do. He states at that point he went home and then about a week later, he went to stand up again to go to the bathroom and then again he blacked out. He said that this time when he came through, he had wet himself and felt very fatigued. He then crawled back to the recliner and was unable to pull himself into the recliner initially. But once he got strength and was able to get back into the recliner, he noted severe worsening of the lower lumbar spine pain. He states that the pain remained in the back with the aching, stabbing presentation as it does today without any type of radiculopathy of the lower extremities. He reports today that the pain has progressed without improvement. Notes that he has to sleep in a recliner and using a half a Percocet in the morning and about another half of Percocet in the evening. He feels that the pain is worse when he has any type of movement. The patient was seen by Dr. Boo under his own advice by his , who initially ordered an x-ray at the time of the second injury and is what we got. At that point he was going to be referred over to [facility] for further workup for possible vertebral compression fracture. While on the table, he actually passed out and at that point was transported to [facility]. During that time an updated x-ray was obtained and due to passing out again while on the table at [facility], and obtaining the x-ray in the ER, he was admitted. He notes that currently his pain level is at 0 when he is sitting in his recliner or staying still. The pain rapidly escalates to an 8 with range of motion of any type of movement. Again, no radicular pain reported. Note that he has tried hydrocodone last night without any type of relief. He has not had any medications given since last night. The only medication that he found to be effective has been hydrocodone. He has not had any MRI secondary to pacemaker being placed. He denies any *------* at this time. The patient denies any type of bowel or bladder lost control or saddle anesthesia at this time. PAST MEDICAL HISTORY: 1. Atrial fibrillation. 2. Congestive heart failure. 3. Coronary artery disease. 4. Hypertension. 5. COPD. 6. Myelodysplastic syndrome anemia. 7. Gastroesophageal reflux disease. PAST SURGICAL HISTORY: 1. Appendectomy. 2. Orthopedic surgery of the elbow. 3. Arthroscopy of both knees and shoulders. 4. Clipping of the right atrial appendage. SOCIAL HISTORY: Significant for history of smoking which he has stopped now. The patient lives at home with his . He denies any alcohol use or recreational drug use at this time. FAMILY HISTORY: Significant for heart disease. MEDICATIONS: Please see medication list. ALLERGIES: The patient noted allergy for LEVAQUIN. REVIEW OF SYSTEMS: GENERAL: The patient is alert and oriented during the visit, no apparent distress when lying still. Noted severe pain with any type of movement. Denies any fever or chills, headaches, weight loss. Does report some concern for weight gain secondary to being off of his Lasix and fluid retention. HEENT: Denies any visual disturbance, changes in hearing, issues with rhinorrhea, sore throat at this time. CARDIOVASCULAR: Denies any chest pain, orthopnea, palpitations. RESPIRATORY: Denies any coughing or hemoptysis. Does report some shortness of breath but improved with use of oxygen. GASTROINTESTINAL: No abdominal pain, constipation or diarrhea reported at this time. MUSCULOSKELETAL: Noted increased back pain but denies any joint swelling or erythema. SKIN: Denies any rashes, lesions, wounds out of the ordinary. Does admit to having some eczema of the extremities. NEUROLOGICAL: Denies any abnormal gait or speech confusion. PSYCHIATRIC: Denies any depression and anxiety, homicidal or suicidal ideation at this time. ENDOCRINE: Denies any polydipsia, polyuria, cold intolerance or heat. PHYSICAL EXAMINATION: VITAL SIGNS: Temperature 97.8, pulse 78, respirations 19, blood pressure *------*, pulse oximetry 100% on nasal cannula oxygen. GENERAL APPEARANCE: The patient is noted some discomfort with lying in bed, currently in a semi-reclined position and noted increased pain with coughing or with any type of movement or intraabdominal pressure. Otherwise, well developed, well nourished. HEENT: Head is normocephalic. Eyes: EOMI. PERRLA. Ears: External ears within normal limits with gross hearing intact. Nose: Patent. Throat: No erythema or swelling. Mouth: Moist mucosal membranes. NECK: No JVD. Trachea midline. No goiters. RESPIRATORY: Clear to auscultation bilaterally. Noted use of 02 via nasal cannula but using it to breathe through his mouth because he feels he can get more oxygen from that. No shortness of breath with movement noted as well. CARDIOVASCULAR: Heart is regular rate and rhythm noted. Postsurgical scar in the left upper part of the chest of pacemaker placement. ABDOMEN: Shows to be obese. Normal bowel sounds. Nontender and nondistended. Soft. No guarding or rebound tenderness noted. EXTREMITIES: Palpable range of motion. Noticed some +1 pitting edema of the lower extremities bilaterally; otherwise, no erythema or swelling. MUSCULOSKELETAL/SPINE: Noted lumbar spine with severe tenderness to palpation at the T12-L1 region, L3-L4-L5 region as well. Pain with flexion and extension and facet loading bilaterally. No erythema or swelling. Noted healing ecchymosis in the lower back as well. NEUROLOGICAL: The patient is alert and oriented x3. Strength is 5/5 at the upper extremities and lower extremities bilaterally. Cranial nerves appear to be grossly intact and with no loss of motor sensory at this time. SKIN: Dry, intact, warm. Noted healing ecchymosis of the left upper extremity, also noted to be dry and eczematoid type skin. PSYCHIATRIC: No homicidal or suicidal ideation, appropriate affect seen at this time. RADIOLOGICAL REPORTS: Lumbar x-ray completed on 07/28/2016 noted age-indeterminate compression deformities of L1 and L4 with about 25% loss of height, also noted osteopenia. Thoracic spine completed 07/28/2016, impression of osteopenia, no acute craters. ASSESSMENT AND PLAN: 1. Compression fracture of the lumbar vertebrae. At this point, we will reviewing what we found. Will recommend obtaining a CT of the lumbar spine as well as a bone scan to determine the level of fracture as well as possible age of fracture. Reviewed the possibility of kyphoplasty with patient once and advised that we will discuss moving forward as we review the further radiological studies. Discussed in detail the process for kyphoplasty as well as expectations along with the risks. In regards to pain, will hold [place] going forward. Will start patient on Percocet 5 mg 1-2 tablets 3 times a day as needed. Not expect the patient to need as much, as he is only using about half the dosing at home and only twice a day. May continue with morphine IV 2 mg q.4 h. if pain elevates. Precautions on stopping given as well. Advised to contact us should the pain level change or become worse. Discussed with patient details and states understanding and agreement. Will review results on his followup with patient the following day. Noted significant history of cardiovascular disease as well as pulmonary dysfunction, so will caution with use. Will need to obtain appropriate lab studies prior to procedure should we decide to proceed. 2. Continue followup workup for syncope and management of COPD, CHF, as well as edema with hospitalist recommendation. Thank you for the opportunity to assist with the care of this patient. Should any questions or concerns arise, please feel free to contact [facility], and we will be more than happy to assist you in any way possible. DICTATING PHYSICIAN: JEREMY CISNEROS [id number] PHY#: [id number] ID: [id number] JOB#: [id number] ACCT: [id number] cc:JEREMY URBINA
== END 2016-07-30 21:33 | disposition short-term general hospital (02) | DRG 312 ==
LOC: ER 10:50 → EH 14:55 → UNDOADMOB 14:55 → EH 16:25 → 3S 18:37 → OBSVTOIN 07-30 13:48
PROVIDERS: ADMIT Emergency Medicine; ATTEND Emergency Medicine
PROC: 3E0F73Z Introduction of Anti-inflammatory into Respiratory Tract, Via Natural or Artificial Opening (ICD-10-PCS; principal; 2016-07-28)
DX: R55 Syncope and collapse (principal); I50.23 Acute on chronic systolic (congestive) heart failure; J44.1 Chronic obstructive pulmonary disease with (acute) exacerbation; I48.2 Chronic atrial fibrillation; I25.10 Atherosclerotic heart disease of native coronary artery without angina pectoris; I10 Essential (primary) hypertension; D46.9 Myelodysplastic syndrome, unspecified; K21.9 Gastro-esophageal reflux disease without esophagitis; M48.56XD Collapsed vertebra, not elsewhere classified, lumbar region, subsequent encounter for fracture with routine healing; D63.8 Anemia in other chronic diseases classified elsewhere; M85.80 Other specified disorders of bone density and structure, unspecified site; Z95.0 Presence of cardiac pacemaker; Z87.891 Personal history of nicotine dependence; Z79.899 Other long term (current) drug therapy; Z88.3 Allergy status to other anti-infective agents
CPT/HCPCS: 36415; 72070; 72110; 72131; 78320; 80048; 80053; 80307; 81001; 82550; 82553; 82607; 82728; 82746; 82803; 82962; 83540; 83550; 83735; 83880; 84443; 84484; 85025; 85045; 85379; 86850; 86900; 86901; 93005; 93010; 93306; 94640; 94799; 96360; 99285; A9503; G0378; J1940; J3490; J7030; J7512; J7620; Q9969

== ENCOUNTER 2016-09-06 06:28 | Emergency (ER) | payer MEDICARE, OTHER ==
[2016-09-06] MEDS ORDERED: ASPIRIN 81 MG TABLET, CHEWABLE PO ONE (07:10)
[2016-09-06] MEDS ORDERED: HYDROMORPHONE HCL INJ/PF 2 MG/ML AMPULE IV ONE (07:55)
--- NOTE | 2016-09-06 08:12 | ER Document Report ---
ED General - General Chief Complaint: Syncope Stated Complaint: FALL/RIGHT HIP PAIN Mode of Arrival: Ambulatory Information source: Patient Notes: 71-year-old male history of congestive heart failure who is on multiple diuretics and notes that he passes often when he gets up in the mornings presents after syncopal episode while he was getting up to himself. Patient denies any chest pain shortness breath difficult to breathing. Patient is normally on 3 L nasal cannula at home. Patient notes his right hip hurts TRAVEL OUTSIDE OF THE [place] IN LAST 30 DAYS: No - HPI Onset: Just prior to arrival Onset/Duration: Sudden Quality of pain: Achy Severity: Mild Pain Level: 1 Associated symptoms: None Exacerbated by: Denies Relieved by: Denies Similar symptoms previously: No Recently seen / treated by doctor: No - Related Data Allergies/Adverse Reactions: levofloxacin [From Levaquin] Allergy (Verified 12/26/15 19:27) Past Medical History - Social History Smoking Status: Never Smoker Cigarette use (# per day): No Chew tobacco use (# tins/day): No Smoking Education Provided: No Family History: Reviewed & Not Pertinent - Past Medical History Cardiac Medical History: Reports: Hx Atrial Fibrillation, Hx Congestive Heart Failure, Hx Coronary Artery Disease, Hx Hypertension Denies: Hx Heart Attack Pulmonary Medical History: Reports: Hx COPD Denies: Hx Asthma, Hx Bronchitis, Hx Pneumonia Neurological Medical History: Denies: Hx Cerebrovascular Accident, Hx Seizures GI Medical History: Reports: Hx Gastroesophageal Reflux Disease Musculoskeltal Medical History: Denies Hx Arthritis Psychiatric Medical History: Denies: Hx Depression Past Surgical History: Reports: Hx Appendectomy, Hx Cardiac Surgery - pacemaker , Hx Orthopedic Surgery - Elbow surgery, arthroscopy to both knees and shoulders , Other - robotic cryogenic clipping right atrial appendage - Immunizations Hx Diphtheria, Pertussis, Tetanus Vaccination: Yes Hx Pneumococcal Vaccination: 07/09/16 Review of Systems - Review of Systems Notes: REVIEW OF SYSTEMS: CONSTITUTIONAL : Denies fever, chills, or sweats. Denies recent illness. EENT: Denies eye, ear, throat, or mouth pain or symptoms. Denies nasal or sinus congestion or discharge. Denies throat, tongue, or mouth swelling or difficulty swallowing. CARDIOVASCULAR: Denies chest pain. Denies palpitations or racing or irregular heart beat. Denies ankle edema. RESPIRATORY: Denies cough, cold, or chest congestion. Denies shortness of breath, difficulty breathing, or wheezing. GASTROINTESTINAL: Denies abdominal pain or distention. Denies nausea, vomiting , or diarrhea. Denies blood in vomitus, stools, or per rectum. Denies black, tarry stools. Denies constipation. GENITOURINARY: Denies difficulty urinating, painful urination, burning, frequency, blood in urine, or discharge. MUSCULOSKELETAL: admits to right hip pain SKIN: Denies rash, lesions or sores. HEMATOLOGIC : Denies easy bruising or bleeding. LYMPHATIC: Denies swollen, enlarged glands. NEUROLOGICAL: admits to syncope PSYCHIATRIC: Denies anxiety or stress. Denies depression, suicidal ideation, or homicidal ideation. ALL OTHER SYSTEMS REVIEWED AND NEGATIVE. Dictation was performed using [employer] voice recognition software PHYSICAL EXAMINATION: GENERAL: Well-appearing, well-nourished and in no acute distress. HEAD: Atraumatic, normocephalic. EYES: Pupils equal round and reactive to light, extraocular movements intact, sclera anicteric, conjunctiva are normal. ENT: Nares patent, oropharynx clear without exudates. Moist mucous membranes. NECK: Normal range of motion, supple without lymphadenopathy LUNGS: coarse wheezing all throughout HEART: Regular rate and rhythm without murmurs ABDOMEN: Soft, nontender, nondistended abdomen. No guarding, no rebound. No masses appreciated. Musculoskeletal: limited rom of the right hip secondary to pain , pulses are intact NEUROLOGICAL: Cranial nerves grossly intact. Normal speech, normal gait. Normal sensory, motor exams PSYCH: Normal mood, normal affect. SKIN: Warm, Dry, normal turgor, no rashes or lesions noted. Physical Exam - Vital signs Vitals: Resp 14 09/06/16 06:36 Course - Re-evaluation Re-evalutation: 09/06/16 08:54 After patient was admitted with his permission, it appears the does not want him to be admitted here, we do not have the capabilities to take care of the patient's complaints at this time, I have explained this to the family they' re deciding if they wish to stay or leave. 09/06/16 09:08 family requests Alexandr hollins, Dr Chambers will call back 09/06/16 09:51 Dr Chambers had transfer center call back, stated no rooms available today, will place o nwaiting list for tomorrow 09/06/16 09:53 Patient now states they owuld like to go to [facility], transfer center 09/06/16 10:25 Dr Reardon has accepted , will await bed, pt and family made aware. 09/06/16 12:24 Patient instructed to take his home medications 09/06/16 12:27 Still awaiitng transfer, family made very aware that we have the capabilities of taking care of the patient here and that they prefer an outside facility. - Vital Signs Vital signs: Temp Pulse Resp BP Pulse Ox 97.7 F 16 85/59 L 95 09/06/16 10:41 09/06/16 12:01 09/06/16 12:00 09/06/16 12:01 - Laboratory Result Diagrams: 09/06/16 08:35 09/06/16 08:35 Laboratory results interpreted by me: 09/06/16 09/06/16 08:35 08:35 RBC 2.69 L Hgb 8.9 L Hct 27.3 L MCV 101 H RDW 21.8 H Plt Count 497 H Band Neutrophils % 6 H Lymphocytes % (Manual) 2 L Abs Neuts (Manual) 8.5 H Abs Lymphs (Manual) 0.3 L Sodium 131.4 L Potassium 2.9 L* Chloride 83 L Carbon Dioxide 41 H* BUN 46 H Glucose 116 H Total Bilirubin 2.0 H Creatine Kinase 20 L - Diagnostic Test Radiology reviewed: Image reviewed, Reports reviewed - EKG Interpretation by Me EKG shows normal: Sinus rhythm, Duncan, Intervals, QRS Complexes Discharge - Discharge Clinical Impression: Syncope and collapse Hip fracture Qualifiers: Encounter type: initial encounter Fracture type: closed Laterality: right Qualified Code(s): S72.001A - Fracture of unspecified part of neck of right femur, initial encounter for closed fracture Condition: Stable Disposition: [facility] Admitting Provider: Hospitalist Unit Admitted: Telemetry
--- NOTE | 2016-09-06 08:26 | EKG REPORT ---
SEVERITY:- ABNORMAL ECG - A FIB WITH INTERMITTENT V PACED BEATS RIGHT BUNDLE BRANCH BLOCK ST DEPRESSION, CONSIDER ISCHEMIA, ANT-LAT LDS VPCs : Confirmed by: Elysia Jj 06-Sep-2016 08:25:38
[2016-09-06 08:57] LABS: HEMATOCRIT 27.3 % (37.9-51.0); HEMOGLOBIN 8.9 g/dL (13.5-17.0); HGB HCT DIFFERENCE -0.6; MEAN CORPUSCULAR HGB CONC 32.6 g/dL (32.0-36.0); MEAN CORPUSCULAR VOLUME 101 fl (80-97); RED BLOOD COUNT 2.69 10^6/uL (4.35-5.55); RED CELL DISTRIBUTION WIDTH 21.8 % (11.5-14.0); WHITE BLOOD COUNT 10.3 10^3/uL (4.0-10.5)
[2016-09-06 09:14] LABS: ALANINE AMINOTRANSFERASE 70 U/L (21-72); ALBUMIN 3.5 g/dL (3.5-5.0); ALKALINE PHOSPHATASE 103 U/L (38-126); ASPARTATE AMINO TRANSFERASE 47 U/L (17-59); BLOOD UREA NITROGEN 46 mg/dL (7-20); CALCIUM 9.2 mg/dL (8.4-10.2); CHLORIDE 83 mmol/L (98-107); CREATINE KINASE 20 U/L (55-170); CREATININE RESULT 1.13 mg/dL (0.52-1.25); GLUCOSE 116 mg/dL (75-110); SODIUM 131.4 mmol/L (137-145); TOTAL PROTEIN 7.3 g/dL (6.3-8.2)
[2016-09-06 09:21] LABS: BAND NEUTROPHILS % (MANUAL) 6 % (3-5); BASOPHILS % (MANUAL) 1 % (0-2); EOSINOPHILS % (MANUAL) 4 % (0-6); LYMPHOCYTES % (MANUAL) 2 % (13-45); TOTAL CELLS COUNTED 100
[2016-09-06 09:22] LABS: ANION GAP 7 (5-19)
[2016-09-06 09:23] LABS: TOXIC GRANULATION 1+; TOXIC VACUOLATION PRESENT
[2016-09-06 09:24] LABS: ANISOCYTOSIS 3+
[2016-09-06 09:25] LABS: CREATINE KINASE MB 0.6 ng/mL (<4.55)
[2016-09-06 09:26] LABS: CARBON DIOXIDE 41 mmol/L (22-30); POTASSIUM 2.9 mmol/L (3.6-5.0)
[2016-09-06 09:27] LABS: TROPONIN I 0.075 ng/mL
[2016-09-06] MEDS: POTASSI CL 20 MEQ/50 ML RIDER 50 ML IV SCH ×2 (09:58→12:48)
[2016-09-06] MEDS: HYDROMORPHONE HCL INJ/PF 2 MG/ML AMPULE IV PRN ×2 (13:59→20:04)
[2016-09-06 21:39] VITALS: BP 100/81
== END 2016-09-06 21:46 | disposition short-term general hospital (02) ==
LOC: ER 06:28 → UNDOADMIN 09:28 → EH 09:28 → UNDODISIN 21:45
DX: S72.001A Fracture of unspecified part of neck of right femur, initial encounter for closed fracture (principal); W18.39XA Other fall on same level, initial encounter; Y93.89 Activity, other specified; R55 Syncope and collapse; M25.551 Pain in right hip; I11.0 Hypertensive heart disease with heart failure; I50.9 Heart failure, unspecified; I48.91 Unspecified atrial fibrillation; J44.9 Chronic obstructive pulmonary disease, unspecified; Z99.81 Dependence on supplemental oxygen; Z95.0 Presence of cardiac pacemaker; Z79.899 Other long term (current) drug therapy; Z88.1 Allergy status to other antibiotic agents
CPT/HCPCS: 93005; 96376; 99285; 96375; 96365; 96366; 36415; 82553; 82550; 85025; 80053; 84484; 71010; 73502; 93010; A9270; J1170; J3480

== ENCOUNTER 2016-11-05 00:19 | Emergency (ER) | payer MEDICARE, OTHER ==
[2016-11-05] MEDS ORDERED: LIDOCAINE 1%/EPINEPHRINE INJ 20 ML VIAL INJ ONE (00:43)
--- NOTE | 2016-11-05 00:44 | ER Document Report ---
ED General - General Chief Complaint: Nose Bleed Stated Complaint: NOSE BLEED Notes: Patient is a 71-year-old male who presents with complaints of nosebleeds. Patient says he started bleeding out of his left knee are tonight. Been holding pressure. He says most of the blood skin on the left are. No blood out of the right ear. Some small amount of blood down the back of his throat. He does wear oxygen. He does have a history of myelodysplastic syndrome. He gets frequent blood transfusions because of this. He is followed by [facility] for this. His last blood transfusions one week ago. His says he said to have frequent blood transfusions since breaking his femur a few months ago. No other complaints this time. He is on Plavix. He does not take aspirin anymore. TRAVEL OUTSIDE OF THE [place] IN LAST 30 DAYS: No - Related Data Allergies/Adverse Reactions: dextromethorphan [From Mucinex DM] Allergy (Verified 11/05/16 01:34) guaifenesin [From Mucinex] Allergy (Verified 11/05/16 01:34) levofloxacin [From Levaquin] Allergy (Verified 11/05/16 01:34) tramadol Allergy (Verified 11/05/16 01:34) Home Medications: Current Home Medications Benzonatate [Tessalon Perle 100 mg Capsule] 1 cap PO TID PRN 11/05/16 [History] Clonazepam [Klonopin] 11/05/16 [History] Droxidopa [Northera] 2 cap PO TID 11/05/16 [History] Fluticasone/Salmeterol [Advair 100-50 Diskus 28 Dose] 2 puff IH Q4H PRN [History] Hydrocodone/Acetaminophen [[place] 5-325 mg Tablet] 1 tab PO Q4H PRN 11/05/16 [ History] Midodrine HCl 2.5 mg PO TID 11/05/16 [History] Thalidomide [Thalomid] 50 mg PO QHS 11/05/16 [History] Past Medical History - Social History Smoking Status: Never Smoker Frequency of alcohol use: None Drug Abuse: None Family History: Reviewed & Not Pertinent Patient has suicidal ideation: No Patient has homicidal ideation: No - Past Medical History Cardiac Medical History: Reports: Hx Atrial Fibrillation, Hx Congestive Heart Failure, Hx Coronary Artery Disease, Hx Hypertension Denies: Hx Heart Attack Pulmonary Medical History: Reports: Hx COPD Denies: Hx Asthma, Hx Bronchitis, Hx Pneumonia Neurological Medical History: Denies: Hx Cerebrovascular Accident, Hx Seizures Renal/ Medical History: Denies: Hx Peritoneal Dialysis GI Medical History: Reports: Hx Gastroesophageal Reflux Disease Musculoskeltal Medical History: Denies Hx Arthritis Psychiatric Medical History: Denies: Hx Depression Past Surgical History: Reports: Hx Appendectomy, Hx Cardiac Surgery - pacemaker , Hx Orthopedic Surgery - Elbow surgery, arthroscopy to both knees and shoulders , Other - robotic cryogenic clipping right atrial appendage - Immunizations Hx Diphtheria, Pertussis, Tetanus Vaccination: Yes Hx Pneumococcal Vaccination: 07/09/16 Review of Systems - Review of Systems Notes: My Normal Review Basic REVIEW OF SYSTEMS: CONSTITUTIONAL : Denies fever, chills, or sweats. Denies recent illness. EENT: Bleeding from left ear. CARDIOVASCULAR: Denies chest pain. RESPIRATORY: Denies cough, cold, or chest congestion. Denies shortness of breath, difficulty breathing, or wheezing. GASTROINTESTINAL: Denies abdominal pain. Denies nausea, vomiting, or diarrhea. Denies constipation. Last BM: MUSCULOSKELETAL: Denies neck or back pain or joint pain or swelling. SKIN: Denies rash or skin lesions. HEMATOLOGIC : on Plavix NEUROLOGICAL: Denies altered mental status or loss of consciousness. Denies headache. Denies weakness or paralysis or loss of use of either side. Denies problems with gait or speech. Denies sensory or motor loss. ALL OTHER SYSTEMS REVIEWED AND NEGATIVE. Physical Exam - Vital signs Vitals: Pulse Resp BP Pulse Ox 85 24 H 147/69 H 98 11/05/16 00:24 11/05/16 00:24 11/05/16 00:24 11/05/16 00:24 - Notes Notes: General Appearance: Well nourished, alert, cooperative, no acute distress, mild obvious discomfort. Vitals: reviewed, See vital signs table. Head: no swelling or tenderness to the head Eyes: PERRL, EOMI, Conjuctiva clear Mouth: No decreasd moisture. Some dry blood in the mouth. Throat: No tonsillar inflammation, No airway obstruction, No lymphadenopathy Nose: I do not see active bleeding from the nares. Extremities: strength 5/5 in all extremities, good pulses in all extremities, no swelling or tenderness in the extremities, no edema. Skin: warm, dry, appropriate color, no rash Neuro: speech clear, oriented x 3, normal affect, responds appropriately to questions. Course - Vital Signs Vital signs: Temp Pulse Resp BP Pulse Ox 85 24 H 147/69 H 98 11/05/16 00:24 11/05/16 00:24 11/05/16 00:24 11/05/16 00:24 - Laboratory Result Diagrams: 11/05/16 00:40 11/05/16 00:40 Laboratory results interpreted by me: 11/05/16 11/05/16 00:40 00:40 RBC 2.94 L Hgb 9.2 L Hct 27.8 L RDW 20.6 H Chloride 92 L Carbon Dioxide 34 H BUN 28 H Glucose 126 H - Transfer of Care Notes: 11/05/16 02:03 Reevaluation the patient continues not have any further bleeding. He is on Plavix because he just had a stent placed in December. He is no longer on aspirin. I encouraged him to continue to use petroleum jelly in the nose. He wears supplemental oxygen as most likely why he has recurrent nosebleeds. His hemoglobin is 9.2 which is actually good for him. He does not need a blood transfusion. Patient will be discharged home but is encouraged return to ER if he has recurrent bleeding or feels unwell. 11/05/16 02:04 Dictation of this chart was performed using voice recognition software; therefore, there may be some unintended grammatical errors. Discharge - Discharge Clinical Impression: Epistaxis Condition: Good Disposition: HOME, SELF-CARE Additional Instructions: Nosebleed Instructions There is a significant chance of re-bleeding following a nosebleed. Proper care makes this less likely. Do not touch the nose for 24 hours. Do not blow the nose forcefully for one week. After 24 hours, gently apply Vaseline ointment to both nostrils with the tip of a finger, three times a day, for one week. It's normal to have a bloody mucous discharge for a few days. If active bleeding recurs, blow all the blood from the nose, then sit quietly and pinch the nose as firmly as possible for 10 minutes. If this does not stop the bleeding, return for further care. Persons with frequent nosebleeds should avoid aspirin (unless prescribed for another reason). Humidity in the bedroom, and petroleum jelly applied to the nostrils at night may help. Please return to the ER immediately if you have recurrent bleeding, fevers, or feel unwell. Please continue to apply petroleum Jelly in the nostrils to help keep the area moist. Referrals: ELZA HARMON MD [Primary Care Provider] - Follow up in 3-5 days
[2016-11-05 01:04] LABS: ANION GAP 11 (5-19); BLOOD UREA NITROGEN 28 mg/dL (7-20); CALCIUM 8.6 mg/dL (8.4-10.2); CARBON DIOXIDE 34 mmol/L (22-30); CHLORIDE 92 mmol/L (98-107); CREATININE RESULT 1.15 mg/dL (0.52-1.25); GLUCOSE 126 mg/dL (75-110); POTASSIUM 4.2 mmol/L (3.6-5.0); SODIUM 137.3 mmol/L (137-145)
[2016-11-05 01:07] LABS: HEMATOCRIT 27.8 % (37.9-51.0); HEMOGLOBIN 9.2 g/dL (13.5-17.0); HGB HCT DIFFERENCE -0.2; MEAN CORPUSCULAR HEMOGLOBIN 31.5 pg (27.0-33.4); MEAN CORPUSCULAR HGB CONC 33.3 g/dL (32.0-36.0); MEAN CORPUSCULAR VOLUME 95 fl (80-97); RED BLOOD COUNT 2.94 10^6/uL (4.35-5.55); RED CELL DISTRIBUTION WIDTH 20.6 % (11.5-14.0); WHITE BLOOD COUNT 6.6 10^3/uL (4.0-10.5)
[2016-11-05 01:32] LABS: BAND NEUTROPHILS % (MANUAL) 5 % (3-5); BASOPHILS % (MANUAL) 1 % (0-2); EOSINOPHILS % (MANUAL) 4 % (0-6); LYMPHOCYTES % (MANUAL) 14 % (13-45); TOTAL CELLS COUNTED 100
[2016-11-05 01:34] LABS: ANISOCYTOSIS 2+; BURR CELLS SLIGHT; OVALOCYTES SLIGHT; POIKILOCYTOSIS SLIGHT; POLYCHROMASIA SLIGHT; SCHISTOCYTES SLIGHT; TOXIC GRANULATION SLIGHT; TOXIC VACUOLATION PRESENT
[2016-11-05 02:33] VITALS: BP 102/60
== END 2016-11-05 02:30 | disposition home or self-care (01) ==
LOC: ER 00:19
DX: R04.0 Epistaxis (principal); Z79.02 Long term (current) use of antithrombotics/antiplatelets; Z99.81 Dependence on supplemental oxygen; I48.91 Unspecified atrial fibrillation; I50.9 Heart failure, unspecified; I25.10 Atherosclerotic heart disease of native coronary artery without angina pectoris; I11.0 Hypertensive heart disease with heart failure; J44.9 Chronic obstructive pulmonary disease, unspecified; D46.9 Myelodysplastic syndrome, unspecified
CPT/HCPCS: 99283; 36415; 85025; 80048; J3490

== ENCOUNTER 2016-12-10 20:55 | Emergency (ER) | payer MEDICARE, OTHER ==
[2016-12-10] MEDS ORDERED: LIDOCAINE 2%/EPINEPHRINE INJ 20 ML VIAL INJ ONE (23:05)
--- NOTE | 2016-12-10 23:17 | ER Document Report ---
ED General - General Chief Complaint: Nose Bleed Stated Complaint: NOSE BLEED Time Seen by Provider: 12/10/16 23:04 Notes: Patient is a very pleasant 71-year-old male who wears continuous oxygen who presents with a nosebleed. He does have a history of myelodysplastic syndrome. Blood was from his left nare. He does not have any further bleeding at this time. He says he just recently stopped. He does get frequent blood transfusions. He goes to [facility] for these. His last blood transfusion was 3 weeks ago. He says he does not put Vaseline in his nares. He has no other complaints this time. TRAVEL OUTSIDE OF THE [place] IN LAST 30 DAYS: No - Related Data Allergies/Adverse Reactions: dextromethorphan [From Mucinex DM] Allergy (Verified 11/05/16 01:34) guaifenesin [From Mucinex] Allergy (Verified 11/05/16 01:34) levofloxacin [From Levaquin] Allergy (Verified 11/05/16 01:34) tramadol Allergy (Verified 11/05/16 01:34) Past Medical History - Social History Smoking Status: Former Smoker Frequency of alcohol use: None Drug Abuse: None Family History: Reviewed & Not Pertinent Patient has suicidal ideation: No Patient has homicidal ideation: No - Past Medical History Cardiac Medical History: Reports: Hx Atrial Fibrillation, Hx Congestive Heart Failure, Hx Coronary Artery Disease, Hx Hypertension Denies: Hx Heart Attack Pulmonary Medical History: Reports: Hx COPD Denies: Hx Asthma, Hx Bronchitis, Hx Pneumonia Neurological Medical History: Denies: Hx Cerebrovascular Accident, Hx Seizures Renal/ Medical History: Denies: Hx Peritoneal Dialysis GI Medical History: Reports: Hx Gastroesophageal Reflux Disease Musculoskeltal Medical History: Denies Hx Arthritis Psychiatric Medical History: Denies: Hx Depression Past Surgical History: Reports: Hx Appendectomy, Hx Cardiac Surgery - pacemaker , Hx Orthopedic Surgery - Elbow surgery, arthroscopy to both knees and shoulders , Other - robotic cryogenic clipping right atrial appendage - Immunizations Hx Diphtheria, Pertussis, Tetanus Vaccination: Yes Hx Pneumococcal Vaccination: 07/09/16 Review of Systems - Review of Systems Notes: My Normal Review Basic REVIEW OF SYSTEMS: CONSTITUTIONAL : Denies fever, chills, or sweats. Denies recent illness. EENT: nose bleed RESPIRATORY: Denies cough, cold, or chest congestion. Denies shortness of breath, difficulty breathing, or wheezing. MUSCULOSKELETAL: Denies neck or back pain or joint pain or swelling. SKIN: Denies rash or skin lesions. HEMATOLOGIC : Myelodysplastc syndrome NEUROLOGICAL: Denies altered mental status or loss of consciousness. Denies headache. Denies weakness or paralysis or loss of use of either side. Denies problems with gait or speech. Denies sensory or motor loss. ALL OTHER SYSTEMS REVIEWED AND NEGATIVE. Physical Exam - Vital signs Vitals: Pulse Resp BP Pulse Ox 74 20 136/66 H 91 L 12/10/16 21:08 12/10/16 21:08 12/10/16 21:08 12/10/16 21:08 - Notes Notes: General Appearance: Well nourished, alert, cooperative, no acute distress, no obvious discomfort. Vitals: reviewed, See vital signs table. Head: no swelling or tenderness to the head Eyes: PERRL, EOMI, Conjuctiva clear Mouth: No decreasd moisture Throat: Some blood seen in posterior pharynx. Nares: Small area in anterior medial left nare which appears to be the previous source of bleeding. Skin: warm, dry, appropriate color, no rash Neuro: speech clear, oriented x 3, normal affect, responds appropriately to questions. Course - Vital Signs Vital signs: Temp Pulse Resp BP Pulse Ox 74 20 136/66 H 91 L 12/10/16 21:08 12/10/16 21:08 12/10/16 21:08 12/10/16 21:08 - Laboratory Result Diagrams: 12/10/16 23:10 Laboratory results interpreted by me: 12/10/16 23:10 RBC 2.37 L Hgb 7.7 L Hct 23.2 L MCV 98 H RDW 25.1 H Lymphocytes % (Manual) 5 L Eosinophils % (Manual) 7 H Abs Lymphs (Manual) 0.3 L - Transfer of Care Notes: 12/11/16 00:44 Patient has had no further bleeding of his nose. I did apply lidocaine with epi and a cotton ball into the nose to help absorb. I then removed the cotton ball. I have applied Vaseline to the inside of his nose. He does have anemia. His hemoglobin was 7.7. He usually does not get transfused until his hemoglobin is below 7. He is asymptomatic and feels well. He does not need transfusion at this time. I feel he is safe to be discharged home. I encouraged him to return to ER if he has recurrent bleeding, difficulty breathing, or feels unwell. Patient agrees with plan and will be discharged home. Dictation of this chart was performed using voice recognition software; therefore, there may be some unintended grammatical errors. Discharge - Discharge Clinical Impression: Epistaxis Anemia Qualifiers: Anemia type: unspecified type Qualified Code(s): D64.9 - Anemia, unspecified Condition: Good Disposition: HOME, SELF-CARE Additional Instructions: There is a significant chance of re-bleeding following a nosebleed. Proper care makes this less likely. Do not touch the nose for 24 hours. Do not blow the nose forcefully for one week. After 24 hours, gently apply Vaseline ointment to both nostrils with the tip of a finger, three times a day, for one week. It's normal to have a bloody mucous discharge for a few days. If active bleeding recurs, blow all the blood from the nose, then sit quietly and pinch the nose as firmly as possible for 10 minutes. If this does not stop the bleeding, return for further care. Persons with frequent nosebleeds should avoid aspirin (unless prescribed for another reason). Humidity in the bedroom, and petroleum jelly applied to the nostrils at night may help. Return to the ER immediately if you have recurrent bleeding that does not improve after 10 minutes of pinching your nose, if you have shortness of breath , or if you have any further concerns.
[2016-12-10 23:47] LABS: HEMATOCRIT 23.2 % (37.9-51.0); HGB HCT DIFFERENCE -0.1; MEAN CORPUSCULAR HEMOGLOBIN 32.3 pg (27.0-33.4); MEAN CORPUSCULAR HGB CONC 33.1 g/dL (32.0-36.0); MEAN CORPUSCULAR VOLUME 98 fl (80-97); RED BLOOD COUNT 2.37 10^6/uL (4.35-5.55); RED CELL DISTRIBUTION WIDTH 25.1 % (11.5-14.0); WHITE BLOOD COUNT 5.8 10^3/uL (4.0-10.5)
[2016-12-10 23:57] LABS: HEMOGLOBIN 7.7 g/dL (13.5-17.0)
[2016-12-11 00:12] LABS: BAND NEUTROPHILS % (MANUAL) 5 % (3-5); BASOPHILS % (MANUAL) 0 % (0-2); EOSINOPHILS % (MANUAL) 7 % (0-6); LYMPHOCYTES % (MANUAL) 5 % (13-45); TOTAL CELLS COUNTED 100
[2016-12-11 00:13] LABS: ANISOCYTOSIS 3+
[2016-12-11 00:16] LABS: OVALOCYTES 1+; PLATELET CLUMPS PRESENT; POIKILOCYTOSIS 1+; POLYCHROMASIA 1+; TARGET CELLS 1+
[2016-12-11 00:18] LABS: TOXIC GRANULATION SLIGHT
[2016-12-11 01:14] VITALS: BP 132/70
== END 2016-12-11 00:55 | disposition home or self-care (01) ==
LOC: ER 20:55
DX: R04.0 Epistaxis (principal); D64.9 Anemia, unspecified; I48.91 Unspecified atrial fibrillation; I50.9 Heart failure, unspecified; I25.10 Atherosclerotic heart disease of native coronary artery without angina pectoris; I11.0 Hypertensive heart disease with heart failure; J44.9 Chronic obstructive pulmonary disease, unspecified; K21.9 Gastro-esophageal reflux disease without esophagitis; Z87.891 Personal history of nicotine dependence; Z95.0 Presence of cardiac pacemaker
CPT/HCPCS: 99283; 36415; 85025; J3490